=== PATIENT | female | born 1940 | race Caucasian/White ===

== ENCOUNTER 2017-05-30 13:13 | Observation (INO) | payer OTHER, MEDICAID ==
[~2017-05-30] VITALS: Ht 154.9 cm; Wt 77.1 kg
[2017-05-30 14:39] LABS: CHLORIDE 104 mEq/L (98-107); INR 1.8; PROTHROMBIN TIME 18.3 sec
[2017-05-30 14:40] LABS: BASOPHILS % 0.6 % (0.0-2.0); EOSINOPHILS % 0.6 % (0.0-5.0); HEMOGLOBIN. 11.3 g/dL (12.0-16.0); LYMPHOCYTES % 19.8 % (20.0-50.0); MEAN CORPUSCULAR HEMOGLOBIN 27.8 pg (28.0-32.0); MEAN CORPUSCULAR VOLUME 81.6 fL (81.0-99.0); MEAN PLATELET VOLUME 9.2 fl (7.4-10.4); MONOCYTES % 7.4 % (2.0-8.0); NEUTROPHILS % 71.6 % (40.0-76.0); PLATELET 138 x1000/uL (130-400); RED BLOOD CELL COUNT 4.05 mill/uL (4.2-5.4); RED CELL DISTRIBUTION WIDTH 15.7 % (11.6-14.6)
[2017-05-30 14:45] LABS: CARBON DIOXIDE 25 mEq/L (21-32)
[2017-05-30 14:48] LABS: GLUCOSE URINE NEGATIVE (NEGATIVE); KETONES URINE TRACE (NEGATIVE); LEUKOCYTE ESTERASE URINE 2+ (NEGATIVE); NITRITE URINE NEGATIVE (NEGATIVE); OCCULT BLOOD URINE 1+ (NEGATIVE); PROTEIN URINE 1+ (NEGATIVE); SPECIFIC GRAVITY URINE 1.025 (1.005-1.030); UROBILINOGEN URINE 0.2 E.U./dL (0.2-1.0)
[2017-05-30 14:49] LABS: CLARITY URINE HAZY (CLEAR); COLOR URINE YELLOW (YELLOW)
[2017-05-30] MEDS ORDERED: CEFTRIAXONE 1 G PREMIX 50 ML IV ONE (15:45)
[2017-05-30] MEDS ORDERED: ASPIRIN 81MG TABLET PO ONE (16:15)
[2017-05-30] MEDS ORDERED: MECLIZINE 25MG TABLET PO ONE (16:15)
[2017-05-30] MEDS ORDERED: SODIUM CHLORIDE 0.9% 1,000 ML IV ONE (16:15)
[2017-05-30 20:50] VITALS: BP 101/62
[2017-05-30 21:00] VITALS: BP 101/62
[2017-05-30] MEDS ORDERED: ONDANSETRON HCL 4MG/2ML VIAL IV PRN (21:15)
[2017-05-30] MEDS ORDERED: HYDROCODONE/ACETAMINOPHEN 5/325MG TABLET PO PRN (21:15)
[2017-05-30] MEDS ORDERED: ACETAMINOPHEN 325MG TABLET PO PRN (21:15)
[2017-05-30] MEDS ORDERED: IPRATROPIUM/ALBUTEROL 0.5-3(2.5)MG/3ML NEB INH PRN (21:15)
[2017-05-30] MEDS ORDERED: CLONIDINE 0.1MG TABLET PO PRN (21:15)
[2017-05-30] MEDS ORDERED: SIMV20TA6 PO (21:19)
[2017-05-30] MEDS ORDERED: SODIUM CHLORIDE 0.45% 1,000 ML IV SCH (21:30)
[2017-05-30] MEDS ORDERED: MECLIZINE 25MG TABLET PO PRN (21:30)
[2017-05-30] MEDS ORDERED: ENOXAPARIN 40MG/0.4ML SYR SUBCUT SCH (22:00)
[2017-05-30] MEDS ORDERED: CIPR-213 PO (22:16)
[2017-05-30] MEDS ORDERED: TRAM50TA3 PO (22:21)
[2017-05-30] MEDS ORDERED: METF500T4 PO (22:21)
[2017-05-30] MEDS ORDERED: OMEP20CA10 PO (22:21)
[2017-05-30] MEDS ORDERED: BUSP10TA3 PO (22:21)
[2017-05-30] MEDS ORDERED: MECL-109 PO (22:21)
[2017-05-30] MEDS ORDERED: BENA20TA3 PO (22:21)
[2017-05-30] MEDS ORDERED: WARF6TAB22 PO (22:21)
[2017-05-30] MEDS ORDERED: LEVOFLOXACIN 500MG PREMIX 100 ML IV NR (23:30)
[2017-05-30] MEDS ORDERED: DEXTROSE 50% WATER 50ML SYRINGE IV PRN (23:30)
[2017-05-31] VITALS: BP 97/55
[2017-05-31 00:17] LABS: CARBON DIOXIDE 25 mEq/L (21-32); CHLORIDE 106 mEq/L (98-107); CREATINE KINASE 77 IU/L (26-192); TROPONIN I < 0.02 ng/mL (0.00-0.04)
[2017-05-31 04:00] VITALS: BP_SYST 105; BP_SYST 112; BP_SYST 130; BP_DIAS 55; BP_DIAS 59; BP_DIAS 64
[2017-05-31] MEDS ORDERED: BLOOD SUGAR DIAGNOSTIC STRIP TEST SCH (06:45)
[2017-05-31 06:51] LABS: BASOPHILS % 0.6 % (0.0-2.0); EOSINOPHILS % 1.6 % (0.0-5.0); HEMATOCRIT. 34.1 % (36.0-48.0); HEMOGLOBIN. 11.4 g/dL (12.0-16.0); LYMPHOCYTES % 28.8 % (20.0-50.0); MEAN CORPUSCULAR HEMOGLOBIN 27.6 pg (28.0-32.0); MEAN CORPUSCULAR VOLUME 82.6 fL (81.0-99.0); MEAN PLATELET VOLUME 9.2 fl (7.4-10.4); PLATELET 130 x1000/uL (130-400); RED BLOOD CELL COUNT 4.13 mill/uL (4.2-5.4); RED CELL DISTRIBUTION WIDTH 15.9 % (11.6-14.6)
[2017-05-31] MEDS ORDERED: INSULIN LISPRO 100 UNITS/ML SUBCUT SCH (07:15)
[2017-05-31 07:39] LABS: CREATINE KINASE 71 IU/L (26-192); HDL CHOLESTEROL 32 mg/dL (40-59); LDL CHOLESTEROL 65 mg/dL (5-100); T4 FREE 1.08 ng/dL (0.76-1.46); TROPONIN I < 0.02 ng/mL (0.00-0.04)
[2017-05-31 08:00] VITALS: BP 111/59
[2017-05-31 12:00] VITALS: BP 105/55
[2017-05-31 12:36] VITALS: BP 111/77
[2017-05-31] MEDS ORDERED: LEVOFLOXACIN 250MG PREMIX 50 ML IV SCH (23:30)
== END 2017-05-31 14:30 | disposition home or self-care (01) ==
LOC: ER 13:26 → INTOOBSV 16:25 → 5WST 16:25 → ENRESERV 19:51 → 5WST 21:31
PROVIDERS: ADMIT Internal Medicine; ATTEND Internal Medicine
DX: R53.1 Weakness (principal); E11.9 Type 2 diabetes mellitus without complications; I10 Essential (primary) hypertension; E78.5 Hyperlipidemia, unspecified; E78.00 Pure hypercholesterolemia, unspecified; R26.9 Unspecified abnormalities of gait and mobility; E86.0 Dehydration; Z95.1 Presence of aortocoronary bypass graft; Z95.2 Presence of prosthetic heart valve
CPT/HCPCS: 36415; 70450; 71010; 80048; 80053; 80061; 81001; 82550; 82962; 84439; 84443; 84484; 85025; 85610; 93005; 93880; 96361; 96365; 96367; 96372; 97162; 97535; 99285; G0378; J0696; J1650; J1956; J7030; J8597